=== PATIENT | male | born 1960 | race African-American/Black ===

== ENCOUNTER 2017-03-12 12:46 | Inpatient (IN) | payer OTHER ==
[~2017-03-12] VITALS: Ht 180.3 cm; Wt 74.2 kg
[2017-03-12 12:52] VITALS: BP 126/78
[2017-03-12] MEDS ORDERED: METFORMIN500 MG PO (12:56)
[2017-03-12] MEDS ORDERED: AMLODIPINE BESY1 TAB PO (12:56)
[2017-03-12] MEDS ORDERED: CARBAMAZEPINE100 M1 PO (12:56)
[2017-03-12 13:38] LABS: BASO % 0.4 % (0.0-1.0); EOS # 0.1 10*3/uL (0.0-0.4); EOS % 1.1 % (1.0-4.0); HEMATOCRIT 43.3 % (42.0-52.0); HEMOGLOBIN 14.7 g/dl (14.0-18.0); LYMPH # 1.5 10*3/uL (1.3-4.4); MEAN CELL VOLUME 95.4 fl (80.0-94.0); MEAN CORPUSCULAR HGB 32.4 pg (27.0-31.0); MEAN CORPUSCULAR HGB CONC 33.9 g/dl (33.0-37.0); MEAN PLATELET VOLUME 8.3 fl (9.6-12.3); MONO # 0.4 10*3/uL (0.1-1.0); MONO % 7.3 % (3.0-9.0); NEUT # 3.6 10*3/uL (2.3-7.9); PLATELET COUNT AUTOMATED 236 10*3/uL (130-400); RED BLOOD COUNT 4.54 10*6/uL (4.50-5.90); RED CELL DISTRI WIDTH 13.1 % (0-14.5); WHITE BLOOD COUNT 5.6 10*3/uL (4.8-10.8)
[2017-03-12 14:00] LABS: ALBUMIN 4.1 gm/dl (3.1-4.5); ALKALINE PHOSPHATASE 52 U/L (45-117); BILIRUBIN, TOTAL 0.6 mg/dl (0.2-1.0); BUN 14 mg/dl (7-24); CARBON DIOXIDE 33 mmol/L (21-32); CHLORIDE 99 mmol/L (98-107); EST GLOM FILT AFRICAN AMERICAN > 60 ml/min; GLUCOSE 132 mg/dL (65-99); POTASSIUM 4.3 mmol/L (3.5-5.1); SGOT/AST 82 IU/L (3-35); SGPT/ALT 123 U/L (12-78); SODIUM 134 mmol/L (136-145); TOTAL PROTEIN 8.4 gm/dL (6.4-8.2)
[2017-03-12 14:19] LABS: BILIRUBIN 2+ (NEGATIVE); BLOOD NEGATIVE (NEGATIVE); CLARITY SL CLOUDY (CLEAR); COLOR YELLOW (YELLOW); GLUCOSE NEGATIVE (NEGATIVE); KETONE 1+ (NEGATIVE); LEUKO ESTERASE TRACE (NEGATIVE); NITRITE NEGATIVE (NEGATIVE); PH 5.5 (5.0-9.0); PROTEIN 1+ (NEGATIVE); SPECIFIC GRAVITY 1.025 (1.005-1.030)
[2017-03-12 14:27] LABS: URINE AMPHETAMINES < 1000 (1000ng/ml); URINE BARBITURATES < 200 (200ng/ml); URINE COCAINE > 300 (300ng/ml)
[2017-03-12 14:29] LABS: BACTERIA 1+; MUCOUS 2+
[2017-03-12 14:30] LABS: URINE REFLEX COMMENT YES (NO)
[2017-03-12 15:10] VITALS: BP 126/78
[2017-03-12 15:30] LABS: PROTHROMBIN TIME 10.7 SECONDS (9.0-12.4)
[2017-03-12 15:54] VITALS: BP 114/74
[2017-03-12 20:00] VITALS: BP 110/61
[2017-03-13] VITALS: BP 104/69
[2017-03-13 04:00] VITALS: BP 115/90
[2017-03-13 08:00] VITALS: BP 115/79
[2017-03-13 12:00] VITALS: BP 122/82
[2017-03-13 16:00] VITALS: BP 130/85
[2017-03-13 20:00] VITALS: BP 129/83
[2017-03-14] VITALS: BP 139/77
[2017-03-14 08:00] VITALS: BP 127/69
[2017-03-14 12:00] VITALS: BP 138/88
[2017-03-14 16:00] VITALS: BP 125/96
[2017-03-14 20:00] VITALS: BP 134/68
[2017-03-15] VITALS: BP 127/76
[2017-03-15 08:00] VITALS: BP 107/66
[2017-03-15 12:00] VITALS: BP 109/80
[2017-03-15 13:49] VITALS: BP 119/74
[2017-03-15 16:00] VITALS: BP 116/48
[2017-03-15 20:00] VITALS: BP 119/77
[2017-03-16] VITALS: BP 123/83
[2017-03-16 04:00] VITALS: BP 136/79
[2017-03-16 05:17] LABS: BASO # 0.1 10*3/uL (0.0-0.1); BASO % 0.8 % (0.0-1.0); EOS # 0.2 10*3/uL (0.0-0.4); EOS % 3.7 % (1.0-4.0); HEMATOCRIT 37.1 % (42.0-52.0); HEMOGLOBIN 12.1 g/dl (14.0-18.0); LYMPH # 2.4 10*3/uL (1.3-4.4); LYMPH % 36.5 % (27.0-41.0); MEAN CELL VOLUME 99.2 fl (80.0-94.0); MEAN CORPUSCULAR HGB 32.4 pg (27.0-31.0); MEAN CORPUSCULAR HGB CONC 32.6 g/dl (33.0-37.0); MEAN PLATELET VOLUME 8.2 fl (9.6-12.3); MONO # 0.6 10*3/uL (0.1-1.0); NEUT # 3.3 10*3/uL (2.3-7.9); NEUT % 49.8 % (47.0-73.0); PLATELET COUNT AUTOMATED 194 10*3/uL (130-400); RED BLOOD COUNT 3.74 10*6/uL (4.50-5.90); WHITE BLOOD COUNT 6.5 10*3/uL (4.8-10.8)
[2017-03-16 05:41] LABS: ALBUMIN 3.4 gm/dl (3.1-4.5); ALKALINE PHOSPHATASE 42 U/L (45-117); BILIRUBIN, TOTAL 0.4 mg/dl (0.2-1.0); BUN 8 mg/dl (7-24); CARBON DIOXIDE 32 mmol/L (21-32); CHLORIDE 102 mmol/L (98-107); EST GLOM FILT AFRICAN AMERICAN > 60 ml/min; GLUCOSE 96 mg/dL (65-99); MAGNESIUM 1.8 mg/dL (1.5-2.1); POTASSIUM 3.7 mmol/L (3.5-5.1); SGOT/AST 52 IU/L (3-35); SGPT/ALT 85 U/L (12-78); SODIUM 138 mmol/L (136-145); TOTAL PROTEIN 7.1 gm/dL (6.4-8.2)
[2017-03-16 07:36] VITALS: BP 111/78
[2017-03-16 12:00] VITALS: BP 111/78
[2017-03-16 16:00] VITALS: BP 106/75
[2017-03-16 20:00] VITALS: BP 119/65
[2017-03-17 08:00] VITALS: BP 138/86
[2017-03-17] MEDS ORDERED: ATARAX,VISTARIL50 MG PO (11:26)
[2017-03-17] MEDS ORDERED: ZOFRAN 4 MG ED2 TAB PO (11:26)
[2017-03-17] MEDS ORDERED: ROPINIROLE HYD0.5 MG PO (11:26)
[2017-03-17 12:00] VITALS: BP 130/64
== END 2017-03-17 13:49 | disposition home or self-care (01) | DRG 897 ==
LOC: ED 12:46 → 5E 13:22 → 4E 13:22 → EDHOLD 13:22 → 5E 14:13 → ICCU 03-15 13:31 → 4E 03-16 08:36
PROVIDERS: Emergency Medicine; Internal Medicine Hospice and Palliative Medicine; Nurse Practitioner Family
DX: F11.23 Opioid dependence with withdrawal (principal); F10.231 Alcohol dependence with withdrawal delirium; E11.65 Type 2 diabetes mellitus with hyperglycemia; E87.1 Hypo-osmolality and hyponatremia; A59.9 Trichomoniasis, unspecified; F14.10 Cocaine abuse, uncomplicated; G40.909 Epilepsy, unspecified, not intractable, without status epilepticus; R74.0 Nonspecific elevation of levels of transaminase and lactic acid dehydrogenase [LDH]; D75.89 Other specified diseases of blood and blood-forming organs; Z71.6 Tobacco abuse counseling; F17.210 Nicotine dependence, cigarettes, uncomplicated; F12.10 Cannabis abuse, uncomplicated; Z79.4 Long term (current) use of insulin; D53.9 Nutritional anemia, unspecified